=== PATIENT | female | born 1940 | race Caucasian/White ===

== ENCOUNTER → 2021-06-27 11:59 | Outpatient (CLI) | payer MEDICARE, OTHER, SELFPAY ==
--- NOTE | ~2021-06-27 | MM_ITS ---
EXAMINATION: MM screening [facility] BI w krunal HISTORY: Screening TECHNIQUE: Craniocaudal and mediolateral oblique 3-D tomosynthesis images were obtained and synthetic 2-D images were generated. CAD analysis was submitted and interpreted. COMPARISON: Comparison to multiple prior studies sequentially, with oldest reviewed study dated 05/2017. BREAST PARENCHYMAL COMPOSITION: There are scattered areas of fibroglandular density. FINDINGS: There is no evidence of suspicious mass, calcification, or architectural distortion to sugg est malignancy in either breast. There has been no suspicious interval change. IMPRESSION: 1. No mammographic evidence of malignancy. 2. Recommend routine screening mammography in one year. BI-RADS Category 1: Negative Reviewed, dictated and finalized at location A.
--- NOTE | ~2021-06-27 | DEXA_ITS ---
Bone Density Report Name: Lakesha Ladd Age: 80 Sex: Female Ethnicity: White Date of : 1940 Indication: postmenopausal; screening for osteoporosis; height loss; prior fracture; hysterectomy; Referring Provider: HARVEY VENTURA Study: Bone densitometry was performed. Exam Date: June 27, 2021 Accession number: [id number] Bone Density: Region BMD T-score Z-score Classification AP Spine (L1-L4) 1.061 0.1 2.7 Normal Femoral Neck (Left) 0.851 0.0 2.3 Normal Total Hip (Left) 1.119 1.4 3.4 Normal Femoral Neck (Right) 0.857 0.1 2.3 Normal Total Hip (Right) 1.092 1.2 3.2 Normal Total Hip Mean 1.106 1.3 3.3 Normal World Health Organization criteria for BMD impression classify patients as: Normal (T-score at or above -1.0), Osteopenia (T-score between -1.0 and -2.5), or Osteoporosis (T-score at or below -2.5). 10-year Fracture Risk: FRAX not reported because: All T-scores for Spine Total, Hip Total, Femoral Neck at or above -1.0 Previous Exams: Region Exam Age BMD T-score BMD Change BMD Change Date g/cm2 vs Baseline vs Previous AP Spine(L1-L4) 06/27/2021 80 1.061 0.1 0.040* 0.007 01/24/2018 77 1.054 0.1 0.032* 0.037* 11/28/2015 75 1.017 -0.3 -0.005 0.023 09/16/2013 73 0.994 -0.5 -0.027* 0.002 09/06/2011 71 0.992 -0.5 -0.029* -0.006 06/01/2008 67 0.998 -0.4 -0.023* -0.023* 10/30/2005 65 1.021 -0.2 Total Hip(Left) 06/27/2021 80 1.119 1.4 -0.025 0.006 01/24/2018 77 1.113 1.4 -0.031* -0.070* 11/28/2015 75 1.183 2.0 0.039* 0.141* 09/16/2013 73 1.042 0.8 -0.102* -0.096* 09/06/2011 71 1.138 1.6 -0.006 0.059* 06/01/2008 67 1.078 1.1 -0.065* -0.065* 10/30/2005 65 1.144 1.7 Total Hip(Right) 06/27/2021 80 1.092 1.2 -0.039* 0.008 01/24/2018 77 1.084 1.2 -0.047* -0.100* 11/28/2015 75 1.183 2.0 0.053* 0.145* 09/16/2013 73 1.038 0.8 -0.093* -0.043* 09/06/2011 71 1.081 1.1 -0.050* 0.029* 06/01/2008 67 1.053 0.9 -0.078* -0.078* 10/30/2005 65 1.131 1.5 *Denotes significance at 95% confidence level, LSC for AP Spine = 0.022 g/cm2, LSC for Total Hip = 0.027 g/cm2 Clinical Information Provided by Patient:
== END ==
PROVIDERS: PCP Family Medicine; Visit Provider Family Medicine
DX: Z12.31 Encounter for screening mammogram for malignant neoplasm of breast (principal); Z78.0 Asymptomatic menopausal state
CPT/HCPCS: 77063; 77067; 77080

== ENCOUNTER 2024-02-07 09:38 | Outpatient (CLI) | payer MEDICARE, OTHER, SELFPAY ==
--- NOTE | ~2024-02-07 | MM_ITS ---
EXAMINATION: MM screening [facility] BI w krunal HISTORY: Screening TECHNIQUE: Craniocaudal and mediolateral oblique 3-D tomosynthesis images were obtained and synthetic 2-D images were generated. CAD analysis was submitted and interpreted. COMPARISON: Comparison to multiple prior studies sequentially, with oldest reviewed study dated 05/2017. BREAST PARENCHYMAL COMPOSITION: Not dense: There are scattered areas of fibroglandular density. FINDINGS: There is no evidence of suspicious mass, calcification, or architectural distortion to sugg est malignancy in either breast. There has been no suspicious interval change. IMPRESSION: 1. No mammographic evidence of malignancy. 2. Recommend routine screening mammography in one year. BI-RADS Category 1: Negative Reviewed, dictated and finalized at location A.
--- NOTE | ~2024-02-07 | DEXA_ITS ---
Bone Density Report Name: JOSÉ BRANCH Age: 83 Sex: Female Ethnicity: White Date of : 1940 Indication: postmenopausal; screening for osteoporosis; prior fracture; hysterectomy; Referring Provider: JAE LAIRD Study: Bone densitometry was performed. Exam Date: February 07, 2024 Accession number: [id number] Bone Density: Region BMD T-score Z-score Classification AP Spine (L1-L4) 1.050 0.0 2.8 Normal Femoral Neck (Left) 0.842 -0.1 2.3 Normal Total Hip (Left) 1.065 1.0 3.1 Normal Femoral Neck (Right) 0.850 0.0 2.4 Normal Total Hip (Right) 1.024 0.7 2.8 Normal Total Hip Mean 1.045 0.9 3.0 Normal World Health Organization criteria for BMD impression classify patients as: Normal (T-score at or above -1.0), Osteopenia (T-score between -1.0 and -2.5), or Osteoporosis (T-score at or below -2.5). 10-year Fracture Risk: FRAX not reported because: All T-scores for Spine Total, Hip Total, Femoral Neck at or above -1.0 Previous Exams: Region Exam Age BMD T-score BMD Change BMD Change Date g/cm2 vs Baseline vs Previous AP Spine(L1-L4) 02/07/2024 83 1.050 0.0 0.028* -0.011 06/27/2021 80 1.061 0.1 0.040* 0.007 01/24/2018 77 1.054 0.1 0.032* 0.037* 11/28/2015 75 1.017 -0.3 -0.005 0.023 09/16/2013 73 0.994 -0.5 -0.027* 0.002 09/06/2011 71 0.992 -0.5 -0.029* -0.006 06/01/2008 67 0.998 -0.4 -0.023* -0.023* 10/30/2005 65 1.021 -0.2 Total Hip(Left) 02/07/2024 83 1.065 1.0 -0.079* -0.054* 06/27/2021 80 1.119 1.4 -0.025 0.006 01/24/2018 77 1.113 1.4 -0.031* -0.070* 11/28/2015 75 1.183 2.0 0.039* 0.141* 09/16/2013 73 1.042 0.8 -0.102* -0.096* 09/06/2011 71 1.138 1.6 -0.006 0.059* 06/01/2008 67 1.078 1.1 -0.065* -0.065* 10/30/2005 65 1.144 1.7 Total Hip(Right) 02/07/2024 83 1.024 0.7 -0.107* -0.068* 06/27/2021 80 1.092 1.2 -0.039* 0.008 01/24/2018 77 1.084 1.2 -0.047* -0.100* 11/28/2015 75 1.183 2.0 0.053* 0.145* 09/16/2013 73 1.038 0.8 -0.093* -0.043* 09/06/2011 71 1.081 1.1 -0.050* 0.029* 06/01/2008 67 1.053 0.9 -0.078* -0.078* 10/30/2005 65 1.131 1.5 *Denotes significance at 95% co
== END 2024-02-07 09:39 ==
DX: Z12.31 Encounter for screening mammogram for malignant neoplasm of breast (principal); Z78.0 Asymptomatic menopausal state
CPT/HCPCS: 77063; 77067; 77080

== ENCOUNTER 2025-10-01 13:21 | Outpatient (CLI) | payer MEDICARE, OTHER, SELFPAY ==
--- NOTE | ~2025-10-01 | MM_ITS ---
EXAMINATION: MM screening [facility] BI w krunal HISTORY: Screening TECHNIQUE: Craniocaudal and mediolateral oblique 3-D tomosynthesis images were obtained and synthetic 2-D images were generated. CAD analysis was submitted and interpreted. COMPARISON: Comparison to multiple prior studies sequentially, with oldest reviewed study dated 01/24/2018. BREAST PARENCHYMAL COMPOSITION: Not dense: There are scattered areas of fibroglandular density. FINDINGS: There is no evidence of suspicious mass, calcification, or architectural distortion to suggest malignancy in either breast. There has been no suspicious interval change. IMPRESSION: 1. No mammographic evidence of malignancy. 2. Recommend routine screening mammography in one year. BI-RADS Category 1: Negative Reviewed, dictated and finalized at location B. OM SCRUBBER
== END 2025-10-01 13:22 | disposition home or self-care (01) ==
LOC: MICIMG 13:22
PROVIDERS: Visit Provider Family Medicine
DX: Z12.31 Encounter for screening mammogram for malignant neoplasm of breast (principal)
CPT/HCPCS: 77063; 77067